=== PATIENT | male | born 2005 | race Two or more races ===

== ENCOUNTER 2024-02-14 01:26 | Emergency (ER) | payer OTHER ==
[2024-02-14] MEDS: Amoxicillin/Clavulanate K 875-125 MG Tab PO ONE (02:18)
== END 2024-02-14 02:29 | disposition home or self-care (01) ==
LOC: FB.ED 01:26
DX: H92.02 Otalgia, left ear (principal); H66.92 Otitis media, unspecified, left ear
CPT/HCPCS: 99282; A9270